=== PATIENT | female | born 1975 | race Caucasian/White ===

== ENCOUNTER → 2019-12-12 | Day surgery (SDC) | payer OTHER | END | disposition home or self-care (01) | LOC: CIR.AMB 12-08 06:10 | DX: O02.1 Missed abortion (principal) ==

== ENCOUNTER 2021-12-21 05:45 | Day surgery (SDC) | payer OTHER ==
[~2021-12-21] VITALS: Ht 157.5 cm; Wt 52.2 kg
[2021-12-21] MEDS ORDERED: NEURONTIN300 MG PO (09:30)
[2021-12-21] MEDS ORDERED: ULTRAM50 MG PO (09:30)
[2021-12-21] MEDS ORDERED: KETO10TA2 PO (09:31)
== END 2021-12-21 15:00 | disposition home or self-care (01) ==
LOC: CIR.AMB 05:45
PROVIDERS: ATTEND Surgery
DX: R87.612 Low grade squamous intraepithelial lesion on cytologic smear of cervix (LGSIL) (principal); Z88.6 Allergy status to analgesic agent